=== PATIENT | male | born 1990 | race Hispanic/Latino ===

== ENCOUNTER 2016-06-08 15:49 | Emergency (ER) | payer SELFPAY ==
[2016-06-08] MEDS ORDERED: Lidocaine Viscous Sol 2% 15 ml UD Cup ONE (16:00)
[2016-06-08] MEDS ORDERED: Mag-Al Plus 1200 MG/1200 MG/120 MG/30 ML UDCUP ONE (16:00)
[2016-06-08] MEDS ORDERED: Ondansetron ODT 4 MG TAB ONE (16:00)
== END 2016-06-08 16:13 | disposition home or self-care (01) ==
LOC: NAV ERS 15:49
DX: K29.70 Gastritis, unspecified, without bleeding (principal); K52.9 Noninfective gastroenteritis and colitis, unspecified
CPT/HCPCS: 99283; Q0162